=== PATIENT | female | born 1960 | race Caucasian/White ===

== ENCOUNTER 2019-03-09 17:38 | Inpatient (IN) | payer OTHER ==
[~2019-03-09] VITALS: Ht 167.6 cm; Wt 71.7 kg
[2019-03-09 17:43] VITALS: Ht 167.6 cm; Wt 71.7 kg
--- NOTE | 2019-03-09 18:12 | NUR ---
PT C/O SOB X1 MONTH WITH DRY COUGH PER PT HX BRONCHITIS, PT STS "HURTS WHEN I BREATHE IN" PT AAOX4, RESPS E/U, SKIN PINK DRY AND WARM, LUNGS CTA, FACIAL GRIMACING NOTED UPON INSPIRATION, PT DENIES CHEST PAIN AND/OR ANY EPISODES OF N/V, PT AFEBRILE AT THIS TIME, PT GOWNED AND PLACED ON FULL CM, NSR
--- NOTE | 2019-03-09 18:13 | NUR ---
PT SPO2 88% VIA RA, EQUAL CHEST RISE AND FALL, NSR ON CM, MD BERNARDO MADE AWARE RT CALLED TO BEDSIDE FOR ABG DRAW AND KEEP OFF O2 UNTIL COLLECTED PER MD BERNARDO VERBAL ORDERS
--- NOTE | 2019-03-09 18:16 | NUR ---
MD BERNARDO AT BEDSIDE PERFORMING MSE
--- NOTE | 2019-03-09 18:18 | NUR ---
RT AT BEDSIDE, BREATHING TX IN PROGRESS
--- NOTE | 2019-03-09 18:27 | NUR ---
PORTABLE CXR AT BEDSIDE
--- NOTE | 2019-03-09 18:41 | NUR ---
BREATHING TX COMPLETE, PT PLACED ON 2L O2 VIA NC PER MD AZ HUDSON
[2019-03-09 18:42] LABS: BASOPHIL % 1.4 % (0-2); PLATELET COUNT 356 x10^3mcL (130-400); RED CELL DISTRIBUTION WIDTH 13.4 % (11.5-14.5)
--- NOTE | 2019-03-09 18:43 | NUR ---
PT INSTRUCTED TO PROVIDE URINE SPECIMEN HYUN, CALL LIGHT WITHIN REACH, SPOUSE AT BEDSIDE
[2019-03-09 18:56] LABS: CALCIUM 9.1 mg/dL (8.5-10.1); CARBON DIOXIDE 30.2 mmol/L (21-32); CHLORIDE SERUM 101 mmol/L (98-107); CREATININE SERUM 0.8 mg/dL (0.6-1.0); GFR1 > 60 mL/min; GLUCOSE SERUM 99 mg/dL (74-106); POTASSIUM SERUM 4.2 mmol/L (3.5-5.1); SODIUM SERUM 138 mmol/L (136-145)
--- NOTE | 2019-03-09 19:00 | NUR ---
REPORT GIVEN TO KATHY AVINA WHO IS RESUMING CARE OF PT AT THIS TIME
[2019-03-09 19:07] LABS: ALKALINE PHOSPHATASE 81 U/L (46-116); ALT/SGPT 14 U/L (14-59); AST/SGOT 16 U/L (15-37); BILIRUBIN TOTAL 0.6 mg/dL (0.20-1.00); C REACTIVE PROTEIN 4.2 mg/dL (<=0.9); TOTAL PROTEIN, SERUM 8.2 g/dL (6.4-8.2)
[2019-03-09 19:08] LABS: ALBUMIN 2.9 g/dL (3.4-5.0)
[2019-03-09 19:10] LABS: CK-MB 0.5 ng/mL (0-3.6)
[2019-03-09 19:12] LABS: FREE T4 1.42 ng/dL (0.76-1.46); FREE THYROXINE INDEX 3.2 ug/dL (1.4-4.5); T4(THYROXINE) 9.1 ug/dL (4.7-13.3)
[2019-03-09 19:16] LABS: T3 TOTAL 1.02 ng/mL
[2019-03-09 19:23] LABS: ERYTHROCYTE SED RATE 61 mm/hr (0-30)
--- NOTE | 2019-03-09 19:35 | NUR ---
PATIENT AMBULATED TO THE BATHROOM . URINE COLLECTED. URINE DIP WAS DONE. URINE SENT TO LAB. PATIENT WENT TO HAVE XRAY DONE.
[2019-03-09 19:55] LABS: microscopic required? NO
[2019-03-09 20:11] LABS: UA SPECIFIC GRAVITY 1.025 (1.005-1.035); urine erythrocyte NEGATIVE (NEGATIVE)
--- NOTE | 2019-03-09 21:15 | NUR ---
BREATHING TREATMENT IN PROGRESS. PATIENT MEDICATED WITH SOLUMEDROL. PATIENT IS ADMITTED TO THE HOSPITAL.
[2019-03-09] MEDS ORDERED: LEVAQUIN750 MG PO (21:35)
--- NOTE | 2019-03-09 21:40 | NUR ---
PATIENT TRANSPORTED TO ROOM.
[2019-03-09 21:45] LABS: CHOLESTEROL/HDL RATIO 3.4
--- NOTE | 2019-03-09 21:45 | NUR ---
RECEIVED PT FROM ED VIA [facility], CAME IN DUE TO SOB AND CHEST PAIN X1.5 MONTHS. AAOX4. DENIES HEADACHE/DIZZINESS. C/O SOB ON EXERTION, O2 SAT=97%, ON 2LPM/NC. CONGESTION NOTED ON AUSCULTATION. C/O 5/10 MID CHEST PAIN ONLY ON DEEP BREATHING. NSR ON THE MONITOR. W/ TRACE EDEMA ON BLE. VOIDS. DENIES ABDOMINAL DISCOMFORT. BOWEL SOUNDS ACTIVE. IV SITE PATENT AND INTACT. SIDE RAILS UPX2. CALL LIGHT ON REACH. ENDORSED TO PRIMARY NURSE PASCUAL FOR CONTINUITY OF CARE
[2019-03-09 21:51] VITALS: BP 136/77
--- NOTE | 2019-03-10 00:30 | NUR ---
RT AT BEDSIDE.
[2019-03-10 00:38] VITALS: BP 136/77
--- NOTE | 2019-03-10 01:38 | NUR ---
PT RESTING. NO SIGNS OF DISTRESS NOTED. IV PATENT, INFUSING WELL. CALL BUTTON WITHIN REACH. SAFETY PRECAUTIONS IN PLACE. WILL CONTINUE TO MONITOR.
[2019-03-10 04:40] VITALS: BP 115/61
--- NOTE | 2019-03-10 05:22 | NUR ---
PT SLEPT ON AND OFF THROUGHOUT THE NIGHT WITH NO SIGNS OF DISTRESS. PT DENIES ANY CHEST PAIN OR SOB. PT ON NC 2L/MIN, NO SOB NOTED. IV PATENT, INFUSING WELL. PT AMBULATORY WITH BRP. MEDICATED PER EMAR. NO SIGNS OF DISTRESS NOTED. CALL BUTTON WITHIN REACH. SAFETY PRECAUTIONS IN PLACE. WILL CONTINUE TO MONITOR AND ENDORSE CARE TO DAY SHIFT RN.
[2019-03-10 06:32] LABS: BASOPHIL % 0.1 % (0-2); PLATELET COUNT 366 x10^3mcL (130-400); RED CELL DISTRIBUTION WIDTH 13.1 % (11.5-14.5)
[2019-03-10 07:08] LABS: CALCIUM 8.6 mg/dL (8.5-10.1); CARBON DIOXIDE 27.7 mmol/L (21-32); CHLORIDE SERUM 102 mmol/L (98-107); CREATININE SERUM 0.7 mg/dL (0.6-1.0); GFR1 > 60 mL/min; GLUCOSE SERUM 164 mg/dL (74-106); MAGNESIUM 2.3 mg/dL (1.8-2.4); PHOSPHOROUS 4.8 mg/dL (2.5-4.9); POTASSIUM SERUM 4.3 mmol/L (3.5-5.1); SODIUM SERUM 139 mmol/L (136-145)
--- NOTE | 2019-03-10 07:10 | NUR ---
RECEIVED PT FROM AVA RN. PT AA/OX4. SPEAKS TAMAZIGHT. NO S/S OF ACUTE DISTRESS. NO S/S OF ACUTE RESPIRATORY DISTRESS. DENIES SOB ON 2LNC AT THIS TIME. RR EVEN/SHALLOW/UNLABORED AT THIS TIME. O2 SAT 95%. RT PROTOCOL IN PLACE. CHEST EXANSION SYMMETRICAL. DENIES CHEST PAIN. IV WNL TO RAC, PATENT AND FLUSHES WELL. IV FLUIDS FLOWING. NO FEVER, NO CHILLS. NO N/V/D. INSTRUCTED TO USE CALL LIGHT TO CALL FOR ASSISTANCE PRN. VERBALIZED UNDERSTANDING. BED IN LOW POSITION. CALL LIGHT WITHIN REACH. WILL CONTINUE TO MONITOR.
--- NOTE | 2019-03-10 07:27 | NUR ---
PT AWAKE DENIES PAIN. NO SIGNS OF DISTRESS. ENDORSED CARE TO DAY SHIFTRN, ALL QUESTIONS ADDRESSED.
[2019-03-10 09:02] VITALS: BP 117/67
[2019-03-10 12:06] VITALS: BP 109/58
--- NOTE | 2019-03-10 12:25 | NUR ---
PT TAKEN FOR CT SCAN BY WHEELCHAIR. IV SALINE LOCKED. NO S/S OF ACUTE DISTRESS. NO CHEST PAIN. NO SOB ON 2LNC.
[2019-03-10 17:46] VITALS: BP 105/57
--- NOTE | 2019-03-10 18:27 | NUR ---
PT LAYING IN BED ON 1LNC. NO S/S OF ACUTE DISTRESS. O2 SAT 96%. RR EVEN/SHALLOW/UNLABORED. NO CHEST PAIN. CALM/COOPERATIVE. VISITORS AT BEDSIDE. IV WNL TO RAC, PATENT AND FLUSHES WELL. IVF FLOWING. NO N/V. TOLERATING REGULAR DIET WELL. BED IN LOW POSITION. CALL LIGHT WITHIN REACH. WILL ENDORSE TO ONCOMING SHIFT.
--- NOTE | 2019-03-10 19:35 | NUR ---
RECIEVED PT IN NO ACUTE DISTRESS. AOX4. TELE 25, SR. DENIES CP. BREATHING E/U. LUNGS DIMINISHED ON NC @ 1L. DENIES SOB. DENIES PAIN. IV TO RAC, PATENT. BED IN LOWEST POSITION, 2 SIDE RAILS UP, CALL LIGHT IN REACH. INSTRUCTED TO CALL FOR ASSISTANCE.
[2019-03-10 20:23] VITALS: BP 115/63
--- NOTE | 2019-03-11 00:59 | NUR ---
RESTING WITH EYES CLOSED. BREATHING E/U. NO ACUTE DISTRESS NOTED. WILL CONTINUE TO MONITOR.
[2019-03-11 05:46] VITALS: BP 112/65
[2019-03-11 06:38] LABS: BASOPHIL % 0.3 % (0-2); PLATELET COUNT 353 x10^3mcL (130-400); RED CELL DISTRIBUTION WIDTH 13.1 % (11.5-14.5)
--- NOTE | 2019-03-11 06:47 | NUR ---
NO C/O SOB OVERNIGHT. NO ACUTE CHANGES. NO ACUTE DISTRESS NOTED. WILL ENDORSE TO ONCOMING RN.
[2019-03-11 06:49] LABS: CALCIUM 8.2 mg/dL (8.5-10.1); CHLORIDE SERUM 106 mmol/L (98-107); CREATININE SERUM 0.7 mg/dL (0.6-1.0); GFR1 > 60 mL/min; GLUCOSE SERUM 113 mg/dL (74-106); MAGNESIUM 2.4 mg/dL (1.8-2.4); PHOSPHOROUS 3.4 mg/dL (2.5-4.9); POTASSIUM SERUM 3.9 mmol/L (3.5-5.1); SODIUM SERUM 142 mmol/L (136-145)
--- NOTE | 2019-03-11 08:04 | NUR ---
Sunli miller from night nurse at 0715. Patient observed sitting on side of bed eating breakfast. Patient has a dry cough. I performed morning assessment and found the patient to have diminished lung sounds upon auscultation. Patient is one L nasal cannula.
[2019-03-11 08:32] VITALS: BP 117/74
[2019-03-11 11:27] VITALS: BP 116/67
--- NOTE | 2019-03-11 14:41 | NUR ---
PATIENT HAS BEEN COMMENCED ON PREDNISONE. FIRST DOSE ADMINSITERED. SUPPLIMENTAL O2 HAS BEEN ADJUSTED BY RT. PATIENT NOW ON 2.5 L.
[2019-03-11 16:09] VITALS: BP 113/64
--- NOTE | 2019-03-11 18:23 | NUR ---
1800 patient found sitting upright in bed and eating dinner. Patient appears to be comfortable.
--- NOTE | 2019-03-11 19:30 | NUR ---
RECIEVED PATIENT AT START OF SHIFT A/O X4, NO SOB ON 2L NC. LUNG SOUND DIMINISHED BILATERALLY. ON TELE 25, NSR. DENIES PAIN. CALL LIGHT AND BEDSIDE TABLE WITHIN REACH.
[2019-03-11 21:09] VITALS: BP 112/61
--- NOTE | 2019-03-12 00:12 | NUR ---
PATIENT IS RESTING EYES CLOSED, BREATHS EVEN, SNORING ON 2L NC. NO DISTRESS. IV INFUSING WITHOUT ERYTHEMA OR INFILTRATION. TELE 25 NSR HR 76.CALL LIGHT WITHIN REACH.
[2019-03-12 05:17] VITALS: BP 123/74
[2019-03-12 06:29] LABS: BASOPHIL % 0.2 % (0-2); PLATELET COUNT 368 x10^3mcL (130-400); RED CELL DISTRIBUTION WIDTH 13.1 % (11.5-14.5)
--- NOTE | 2019-03-12 06:36 | NUR ---
PATIENT IS AWAKE. DENIES PAIN. NC REDUCED TO 1L, SATTING 95%. IV INFUSING WITHOUT ERYTHEMA OR INFILTRATION. CALL LIGHT AND BEDSIDE TABLE WITHIN REACH. WILL ENDORSE CARE TO DAYSHIFT NURSE.
[2019-03-12 06:50] LABS: CALCIUM 8.6 mg/dL (8.5-10.1); CARBON DIOXIDE 29.9 mmol/L (21-32); CHLORIDE SERUM 104 mmol/L (98-107); CREATININE SERUM 0.5 mg/dL (0.6-1.0); GFR1 > 60 mL/min; GLUCOSE SERUM 99 mg/dL (74-106); MAGNESIUM 2.4 mg/dL (1.8-2.4); PHOSPHOROUS 3.4 mg/dL (2.5-4.9); POTASSIUM SERUM 3.9 mmol/L (3.5-5.1); SODIUM SERUM 141 mmol/L (136-145)
--- NOTE | 2019-03-12 07:28 | NUR ---
RECEIVED IN NO ACUTE RESP. DISTRESS. AWAKE, ALERT AND ORIENTED. ON O2 1L N/C SATS 95% NO SOB NOTED. NO C/O PAIN OR DISCOMFORT. IVF INFUSNG TO KVO AND SITE CLEAR. CALL LIGHT WITHIN REACH. WILL CONTINUE WITH PLAN OF CARE.
[2019-03-12 08:48] VITALS: BP 124/75
--- NOTE | 2019-03-12 12:36 | NUR ---
BURNER HAND IN ROOM, PT IN NO DISTRESS. DENIES ANY DISCOMFORT.
[2019-03-12 14:00] VITALS: BP 113/70
[2019-03-12 17:00] VITALS: BP 112/63
--- NOTE | 2019-03-12 17:59 | NUR ---
IV SITE CHANGED TO RFA BECAUSE PT C/O MACHINE KEEPS ON BEEPING. CATH AND SITE CLEAR. NO REDNESS OR SWELLING.
--- NOTE | 2019-03-12 19:14 | NUR ---
REMAINS IN NO DISTRESS, AWAKE AND ALERT. FAMILY AT BEDSIDE. NO C/O PAIN OR DISCOMFORT. CALL LIGHT WITHIN REACH. WILL BE ENDORSED TO INCOMING SHIFT.
--- NOTE | 2019-03-12 19:30 | NUR ---
REC'D PT FROM DAY NURSE. PT RESTING IN BED. AAOX4, SPEECH CLEAR, FOLLOWS COMMANDS. TELE 25. DENIES CP, DIZZINESS, OR PALPITATIONS. DENIES RESP DISTRESS OR SOB. BREATHING EVEN/UNLABORED ON 1L O2 VIA NC, SPO2 95%. NO COUGH NOTED. ENCOURAGED IS USE. NO EDEMA NOTED. ABD SOFT/FLAT. DENIES ABD PAIN, TENDERNESS, OR N/V. VOIDING FREELY. AMBULATORY. SKIN INTACT. IV TO RFA PATENT AND INFUSING, SITE WNL. CALL LIGHT WITHIN REACH, BED AT LOWEST POSITION. WILL CONTINUE TO MONITOR.
[2019-03-12 20:46] VITALS: BP 123/66
--- NOTE | 2019-03-13 00:17 | NUR ---
PT RESTING IN BED WITH EYES CLOSED. NO SIGNS OF DISTRESS NOTED. BREATHING EVEN/UNLABORED ON 1L O2 VIA NC. CALL LIGHT WITHIN REACH, BED AT LOWEST POSITION. WILL CONTINUE TO MONITOR.
[2019-03-13 04:27] VITALS: BP 130/78
[2019-03-13 06:18] LABS: BASOPHIL % 0.3 % (0-2); PLATELET COUNT 367 x10^3mcL (130-400); RED CELL DISTRIBUTION WIDTH 13.1 % (11.5-14.5)
[2019-03-13 06:35] LABS: CALCIUM 8.3 mg/dL (8.5-10.1); CARBON DIOXIDE 32.4 mmol/L (21-32); CHLORIDE SERUM 102 mmol/L (98-107); CREATININE SERUM 0.7 mg/dL (0.6-1.0); GFR1 > 60 mL/min; GLUCOSE SERUM 90 mg/dL (74-106); MAGNESIUM 2.4 mg/dL (1.8-2.4); PHOSPHOROUS 3.7 mg/dL (2.5-4.9); POTASSIUM SERUM 3.8 mmol/L (3.5-5.1); SODIUM SERUM 140 mmol/L (136-145)
--- NOTE | 2019-03-13 07:46 | NUR ---
PT LYING IN BED A/A. BREATHING EQUAL/ UNLABORED ON 1L VIA NC. IVF RUNNING AT 10ML/HR. NO REDNEESS/ SWELLING AT IV SITE. BED IN LOW POSITION, CALL LIGHT IN REACH, WILL CONTINUE TO MONITOR
[2019-03-13 08:33] VITALS: BP 120/81
[2019-03-13 12:35] VITALS: BP 116/78
--- NOTE | 2019-03-13 12:52 | NUR ---
PT SITTING AT BEDSIDE, EATING LUNCH. BREATHING EQUAL/ UNLABORED ON 2 L NC. IV ABX RUNNING AT 100ML/HR. NO REDNESS/ SWELLING TO IV SITE. BED IN LOW POSITION, CALL LIGHT IN REACH. WILL CONTINUE TO MONITOR
[2019-03-13 17:03] VITALS: BP 115/71
--- NOTE | 2019-03-13 17:03 | NUR ---
PT LYING IN BED A/A. BREATHING EQUAL/ UNLABORED ON 2L/ NC. NO C/O DISTRESS/ PAIN AT THIS TIME. IVF RUNNING AT 10 ML/HR. NO REDNESS/ SWELLING AT IV SITE. BED IN LOW POSITION, CALL LIGHT IN REACH. WILL CONTINUE TO MONITOR
--- NOTE | 2019-03-13 18:45 | NUR ---
PT LYING IN BED A/A. BREATHING EQUAL/ UNLABORED ON 2L/ NC. IVF RUNNING AT 10ML/HR. NO REDNESS/SWELLING TO IV SITE. BED IN LOW POSITION, CALL LIGHT IN REACH. WILL ENDORSE TO ON COMING NURSE
[2019-03-13 19:41] VITALS: BP 108/61
--- NOTE | 2019-03-13 22:21 | NUR ---
PT'S IN BED NO RESP DISTRESS NOTED , ON 2L N/C SAT WNL , LUNG SOUNDS DM .PT'S AAOX4 DENY PAIN AT THE MOMENT , PIV INTACT INFUSING WELL , CALL LIGHT WITHIN PT'S REACH .
--- NOTE | 2019-03-14 05:09 | NUR ---
I HAVE REVIEWED THE DATA COLLECTION BY SULFUR CHLORIDE OPERATOR (NAME):SKYE POND ENTERED ON (DATE/TIME): I CONCUR WITH THE DATA AND ANY EXCEPTIONS OR COMMENTS ARE LISTED BELOW:
[2019-03-14 05:23] VITALS: BP 118/72
--- NOTE | 2019-03-14 06:21 | NUR ---
NO CHANGES OF CONDITION NOTED, ALL DUE MEDS GIVEN NO REACTION NOTED, PT'S AWAKE DENY SOB , ON 2LN/C SAT WNL , HOME 02 WAS DELIVERED LAST NIGHT EDUCATION HOW TO USE 02 TANK GIVEN TO PT BY BILL EXERCISER PT VERBALIZED UNDERSTANDING , PIV INTACT INFUSING WELL NS AT 10ML/HR .
[2019-03-14 07:00] LABS: BASOPHIL % 0.4 % (0-2); PLATELET COUNT 354 x10^3mcL (130-400); RED CELL DISTRIBUTION WIDTH 13.3 % (11.5-14.5)
[2019-03-14 07:26] VITALS: BP 117/76
[2019-03-14 07:29] LABS: CALCIUM 8.7 mg/dL (8.5-10.1); CARBON DIOXIDE 31.7 mmol/L (21-32); CHLORIDE SERUM 101 mmol/L (98-107); CREATININE SERUM 0.7 mg/dL (0.6-1.0); GFR1 > 60 mL/min; GLUCOSE SERUM 83 mg/dL (74-106); POTASSIUM SERUM 3.7 mmol/L (3.5-5.1); SODIUM SERUM 140 mmol/L (136-145)
--- NOTE | 2019-03-14 07:33 | NUR ---
PT LYING IN BED A/A. BREATHING EQUAL/UNLABORED ON 2L/NC. NO C/O DISTRESS OR PAIN AT THIS TIME. IVF RUNNING AT 10ML/HR. NO REDNESS/SWELLING AT IV SITE. BED IN LOW POSITION, CALL LIGHT IN REACH. WILL CONTINUE TO MONITOR
[2019-03-14] MEDS ORDERED: MEDDP PO (10:32)
[2019-03-14] MEDS ORDERED: LEVAQUIN750 MG PO (10:42)
[2019-03-14 11:07] VITALS: BP 117/76
[2019-03-14 11:46] VITALS: BP 111/81
[2019-03-14 12:30] VITALS: BP 111/81
--- NOTE | 2019-03-14 13:00 | NUR ---
PATIENT STATED THAT HOME O2 CONCENTRATOR ALREADY DELIVERIED, INTERPRETED BY LASHAWN FLORES.
--- NOTE | 2019-03-14 13:50 | NUR ---
DISCHARGE INSTRUCTION/PRESCRIPTION GIVEN TO PATIENT INTERPRETED BY PATIENT'S DAUGHTER. S/L TO RFA REMOVED WITH CATHETER INTACT, NO ERYTHEMA OR SWELLING TO SITE, DRSG APPLIED. TELEMETRY#25 RETURNED TO MT. O2 2LPM N/C CONNECTED TO HOME O2TANK. BROUGHT VIA WHEELCHAIR ACCOMPANIED BY ORDNANCE ARTIFICER HELPER AND PATIENT'S DAUGHTER. CONDITION STABLE UPON DISCHARGE.
== END 2019-03-14 14:35 | disposition home or self-care (01) | DRG 189 ==
LOC: ED 17:38 → DU 21:01
PROVIDERS: General Practice; Specialist; ADMIT Internal Medicine
DX: J96.21 Acute and chronic respiratory failure with hypoxia (principal); M35.1 Other overlap syndromes; J44.1 Chronic obstructive pulmonary disease with (acute) exacerbation; E66.2 Morbid (severe) obesity with alveolar hypoventilation; Z68.24 Body mass index [BMI] 24.0-24.9, adult; Z71.3 Dietary counseling and surveillance; I50.9 Heart failure, unspecified
CPT/HCPCS: 36600; 83880; 84439; 94150; G0378; J1644; J1940; J2543; J2920; J2930; J7030; J7512; J7613; J7620; J7644; Q0092; Q9967

== ENCOUNTER 2019-07-29 06:50 | Inpatient (IN) | payer OTHER ==
[~2019-07-29] VITALS: Ht 167.6 cm; Wt 72.4 kg
[~2019-07-29 06:50] MED LIST: LEVAQUIN750 MG PO; MEDDP PO
[2019-07-29 06:54] VITALS: Ht 167.6 cm; Wt 72.4 kg
--- NOTE | 2019-07-29 07:18 | NUR ---
EKG IN PROGRESS BY SAMMI ALAMO AT BEDSIDE.
--- NOTE | 2019-07-29 07:28 | NUR ---
IV TO L AC NOTED INFILTRATED AT THIS TIME. IV REMOVED, ANGIOCATH INTACT. IV STARTED TO R AC AND FLUSHES WITH NO COMPLICATIONS. 20 G TO R AC, NO NOTED INFILTRATION AND IV FLUIDS RUNNING AT ORDERED RATE WITH NO COMPLICATIONS.
--- NOTE | 2019-07-29 07:30 | NUR ---
REPORT GIVEN TO BELLE AVINA. BELLE TO ASSUME CARE OF PT AT THIS TIME.
[2019-07-29 07:54] LABS: PLATELET COUNT 227 x10^3mcL (130-400); RED CELL DISTRIBUTION WIDTH 12.6 % (11.5-14.5)
[2019-07-29 08:08] LABS: microscopic required? YES; urine erythrocyte 2+ (NEGATIVE)
--- NOTE | 2019-07-29 08:20 | NUR ---
critical lab wbc 22.2 dr. erna sun.
[2019-07-29 09:03] LABS: CALCIUM 8.3 mg/dL (8.5-10.1); CARBON DIOXIDE 22.7 mmol/L (21-32); CHLORIDE SERUM 99 mmol/L (98-107); CREATININE SERUM 0.9 mg/dL (0.6-1.0); GFR1 > 60 mL/min; GLUCOSE SERUM 136 mg/dL (74-106); SODIUM SERUM 132 mmol/L (136-145)
[2019-07-29 09:08] LABS: ALKALINE PHOSPHATASE 171 U/L (46-116); ALT/SGPT 47 U/L (14-59); AST/SGOT 38 U/L (15-37); BILIRUBIN TOTAL 1.4 mg/dL (0.20-1.00); HDL CHOLESTEROL 38 mg/dL (40-60); TOTAL PROTEIN, SERUM 7.1 g/dL (6.4-8.2)
[2019-07-29 09:10] LABS: ALBUMIN 2.4 g/dL (3.4-5.0); CHOLESTEROL 117 mg/dL (<200)
--- NOTE | 2019-07-29 09:49 | NUR ---
RETURNED FROM CT.
--- NOTE | 2019-07-29 11:33 | NUR ---
RECEIVED PATIENT. PATIENT IN BED, STABLE. VITAL SIGNS BP 102/53 (64), 71 BPM, 98.1 TEMP, 96% ON ROOM AIR, AND 18 RESP. NO DRAINAGE NOTED TO EENT. DENIES HEADACHE AT THIS TIME BUT ADMITS TO HAVE HEADACHE AT ADMISSION AND FROM THE PAST 3 DAYS. PT HAS MILD DIZZINESS AT THIS TIME. LUNG SOUNDS ARE CLEAR TO AUSCULTATION BILATERALLY, NO ACUTE RESP DISTRESS NOTED. REMAINS ON ROOM AIR. BOWEL SOUNDS ARE ACTIVE ON ALL FOUR QUADRANTS, DENIES CONSTIPATION, NAUSEA, OR VOMITING. LAST BM 07/28/2019 AND NORMAL/FORMED DENIES DYSURIA OR PAIN WITH URINATION. RADIAL AND PEDAL PULSES PRESENT AND PALPABLE. NO EDEMA NOTED. NO SKIN ISSUES/WOUNDS NOTED. IV TO RAC INTACT, NO ERYTHEMA/SWELLING NOTED. SAFETY PRECAUTION IN PLACE. CALL LIGHT WITHIN REACH. WILL CONTINUE TO MONITOR.
[2019-07-29 11:39] LABS: BAND NEUTROPHIL 6 % (0-10); MONOCYTE 6 % (0-7); SEGMENTED NEUTROPHILS 85 % (37-75)
[2019-07-29 11:40] LABS: BASOPHIL 0 % (0-2); rbc morphology (normal/abnorm) ABNORMAL (NORMAL)
[2019-07-29 12:53] VITALS: BP 102/53
--- NOTE | 2019-07-29 13:00 | NUR ---
PATIENT IN BED, STABLE. NO ACUTE RESP DISTRESS NOTED. REMAINS ON ROOM AIR. NO COMPLAINTS OF PAIN AT THIS TIME. IV INTACT AND PATENT. NO ERYTHEMA/SWELLING NOTED. SAFETY PRECAUTION IN PLACE. FAMILY AT BEDSIDE. CALL LIGHT WITHIN REACH. WILL CONTINUE TO MONITOR.
[2019-07-29 13:08] LABS: MAGNESIUM 1.9 mg/dL (1.8-2.4)
[2019-07-29 13:17] LABS: T3 TOTAL 0.93 ng/mL
[2019-07-29 13:46] VITALS: BP 100/54
--- NOTE | 2019-07-29 14:31 | NUR ---
SPOKE WITH LESIA CAMILO REGARDING PATIENT DIET. PER LESIA CAMILO, OK TO PUT PATIENT ON FULL LIQUID DIET. PT MADE AWARE. WILL CONTINUE TO MONITOR. SPOKE WITH KITCHEN STAFF TO FOLLOW UP WITH FOOD TRAY. PER KITCHEN STAFF, FOOD WILL BE BROUGHT TO PATIENT ROOM SHORTLY. PT MADE AWARE. WILL CONTINUE TO MONITOR.
[2019-07-29 14:51] LABS: FREE T4 1.63 ng/dL (0.76-1.46); FREE THYROXINE INDEX 3.1 ug/dL (1.4-4.5); T4(THYROXINE) 7.9 ug/dL (4.7-13.3)
--- NOTE | 2019-07-29 16:00 | NUR ---
PATIENT IN BED, STABLE. NO ACUTE RESP DISTRESS NOTED. REMAINS ON ROOM AIR. NO C/O PAIN AT THIS TIME. IV INTACT AND PATENT, NO ERYTHEMA/SWELLING NOTED. NS RUNNING AT 100ML/HR. SAFETY PRECAUTION IN PLACE. CALL LIGHT WITHIN REACH. WILL CONTINUE TO MONITOR.
[2019-07-29 17:36] VITALS: BP 107/55
--- NOTE | 2019-07-29 18:33 | NUR ---
PATIENT COMPLAINING OF 9/10 HEADACHE. TYLENOL 650 MG PO GIVEN. WILL CONTINUE TO MONITOR. PATIENT IN BED, STABLE. NO ACUTE RESP DISTRESS NOTED. REMAINS ON ROOM AIR. IV INTACT AND PATENT. SAFETY PRECAUTION IN PLACE. CALL LIGHT WITHIN REACH. ALL NEEDS ATTENDED TO. WILL ENDORSE TO LIGHT RAIL VEHICLE OPERATOR NURSE.
--- NOTE | 2019-07-29 19:30 | NUR ---
RECEIVED PT IN BED AWAKE, ALERT,ORIENTED X4. 2 FAMILY MEMBERS AT BEDSIDE. LUNG SOUNDS CLEAR . NO SOB ON ROOM AIR. BOWEL SOUNDS ACTIVE. PT DENIED HAVING PAIN OR BURNING SENSATION ON URINATION. W/ IVF NS AT 100 CC/HR VIA RTAC. CALL LIGHT W/IN REACH.
[2019-07-29 20:29] VITALS: BP 96/45
--- NOTE | 2019-07-30 02:00 | NUR ---
PT APPEARS TO BE SLEEPING COMFORTABLY. NO S/S OF DISTRESS.
--- NOTE | 2019-07-30 03:45 | NUR ---
IV TO RTAC NOT PATENT. IV REMOVED. STARTED NEW IV ON THE LTFA G22. PT TOLERATED PROCEDURE WELL.
--- NOTE | 2019-07-30 05:19 | NUR ---
PT ASLEEP AND IN STABLE CONDITION. SHE HAD NO C/O PAIN. SHE IS ABLE TO AMBULATE W/ STEADY GAIT. IVF NS INFUSING WELL AT 100 CC/HR VIA LTFA. ALL NEEDS ATTENDED TO.
[2019-07-30 05:57] VITALS: BP 101/54
[2019-07-30 06:14] LABS: BASOPHIL % 0.2 % (0-2); PLATELET COUNT 236 x10^3mcL (130-400); RED CELL DISTRIBUTION WIDTH 12.6 % (11.5-14.5)
[2019-07-30 06:56] LABS: CALCIUM 7.8 mg/dL (8.5-10.1); CARBON DIOXIDE 24.1 mmol/L (21-32); CHLORIDE SERUM 104 mmol/L (98-107); CREATININE SERUM 0.7 mg/dL (0.6-1.0); GFR1 > 60 mL/min; GLUCOSE SERUM 103 mg/dL (74-106); SODIUM SERUM 135 mmol/L (136-145)
--- NOTE | 2019-07-30 07:25 | NUR ---
RECEIVED PT. IN BED A/A/O X3. NO SOB, NO N/V NOTED. PT. DENIES ANY PAIN AT THIS TIME. NS RUNNING AT 100 CC/HR VIA IV SITE AT L FA. BED IN LOW POS., CALL LIGHT WITHIN REACH. SIDE RAILS UP X3.
[2019-07-30 09:10] VITALS: BP 107/79
[2019-07-30 12:55] VITALS: BP 117/70
[2019-07-30 17:30] VITALS: BP 125/64
--- NOTE | 2019-07-30 19:30 | NUR ---
RECEIVED PTIN BED AWAKE, ALERT,ORIENTED X4 W/ AT BEDSIDE. LUNGS CTA. NO SOB ON ROOM AIR. PT DENIED HAVING PAIN. TEMP RECHECKED AND 100.6 AT THIS TIME. PT DENIED DYSURIA. W/ IVF NS AT 100 CC/HR VIA LTFA. CALL LIGHT W/IN REACH.
--- NOTE | 2019-07-30 19:34 | NUR ---
REMAINS IN STABLE CONDITION AT THIS TIME. WILL CONTINUE TO MONITOR.
--- NOTE | 2019-07-30 20:02 | NUR ---
PT MEDICATED W/ TYLENOL 650 MG PO FOR ARUL=062.6 .
[2019-07-30 20:59] VITALS: BP 121/71
[2019-07-31 04:15] VITALS: BP 130/75
--- NOTE | 2019-07-31 05:59 | NUR ---
PT SLEPT IN LONG INTERVALS. SHE HAD NO C/O PAIN .PT AFEBRILE AT THIS TIME W/ TEMP OF 96.7 . NO C/O DYSURIA. IVF NS INFUSING AT 100 CC/HR VIA LTFA.
[2019-07-31 06:27] LABS: PLATELET COUNT 295 x10^3mcL (130-400); RED CELL DISTRIBUTION WIDTH 12.8 % (11.5-14.5)
[2019-07-31 06:42] LABS: CALCIUM 8.7 mg/dL (8.5-10.1); CARBON DIOXIDE 29.4 mmol/L (21-32); CHLORIDE SERUM 104 mmol/L (98-107); CREATININE SERUM 0.6 mg/dL (0.6-1.0); GFR1 > 60 mL/min; GLUCOSE SERUM 94 mg/dL (74-106); POTASSIUM SERUM 3.6 mmol/L (3.5-5.1); SODIUM SERUM 140 mmol/L (136-145)
--- NOTE | 2019-07-31 07:10 | NUR ---
RECEIVED PT FROM [employer] ARCHITECT NURSE. PT RESTING IN BED, AOX4, RESP E/U ON RA. NO ACUTE DISTRESS NOTED AT THIS TIME. ON TELE 22 SHOWING NSR, HR: 94. IV TO LFA W/ NO SIGNS OF INFILTRATION, IVF INFUSING WELL. BED IN LOWEST POSITION AND CALL LIGHT WITHIN REACH. WILL CONTINUE TO MONITOR.
[2019-07-31 08:50] VITALS: BP 135/68
[2019-07-31 10:00] LABS: ATYPICAL LYMPH 1 %; BAND NEUTROPHIL 6 % (0-10); BASOPHIL 0 % (0-2); MONOCYTE 19 % (0-7); SEGMENTED NEUTROPHILS 65 % (37-75)
[2019-07-31 10:01] LABS: PLATELET MORPHOLOGY PLATELETS INCREASED; rbc morphology (normal/abnorm) ABNORMAL (NORMAL)
[2019-07-31] MEDS ORDERED: MOT600 PO (10:12)
[2019-07-31] MEDS ORDERED: CIPRO500 MG PO (10:12)
[2019-07-31 11:11] VITALS: BP 135/68
--- NOTE | 2019-07-31 13:52 | NUR ---
PT DISCHARGED. DC PACKET, FOLLOW UP INSTRUCTIONS AND NEW RX MEDS REVIEWED W/ PT. PT AOX4, RESP E/U ON RA, VS STABLE, MALA PAIN AT THIS TIME. IV TO RFA REMOVED, CATH INTACT, GAUZE APPLIED. PT AMBULATORY TO DC OFFICE, ESCORTED BY LASHAWN MERRITT W/ NO ACUTE INCIDENCE.
== END 2019-07-31 13:51 | disposition home or self-care (01) | DRG 871 ==
LOC: ED 06:50 → DU 10:31
PROVIDERS: Emergency Medicine; Student in an Organized Health Care Education/Training Program; ADMIT Internal Medicine
DX: A41.9 Sepsis, unspecified organism (principal); N17.0 Acute kidney failure with tubular necrosis; N10 Acute pyelonephritis; J44.9 Chronic obstructive pulmonary disease, unspecified; I50.9 Heart failure, unspecified; R16.0 Hepatomegaly, not elsewhere classified; Z91.19 Patient's noncompliance with other medical treatment and regimen; Z87.01 Personal history of pneumonia (recurrent); Z79.899 Other long term (current) drug therapy; Z23 Encounter for immunization
CPT/HCPCS: 84439; 87804; 90658; G0378; J0696; J7030; Q0092